=== PATIENT | male | born 1965 | race Caucasian/White ===

== ENCOUNTER 2016-09-14 07:58 | Emergency (ER) | payer OTHER ==
[~2016-09-14] VITALS: Ht 182.9 cm; Wt 85.3 kg
[~2016-09-14 07:58] MED LIST: B COMPLETE1 EACH PO; CADUET 5/201 TABLET; CAMPRAL333 MG PO; CITALOPRAM HBR20 MG PO; FIORICET 50-301 EACH PO; KEFLEX500 MG PO; MULTI VITAMIN1 EACH PO; VICODIN 5-3001 EACH PO; WELLBUTRIN XL150 MG
[2016-09-14 08:30] VITALS: BP 120/86
[2016-09-14] MEDS ORDERED: ACYCLOVIR800 MG PO (08:36)
[2016-09-14] MEDS ORDERED: PERCOCET 5/31 TABLET PO (08:36)
== END 2016-09-14 09:00 | disposition home or self-care (01) ==
LOC: EME 07:58
DX: B02.22 Postherpetic trigeminal neuralgia (principal); R19.7 Diarrhea, unspecified; F17.200 Nicotine dependence, unspecified, uncomplicated
CPT/HCPCS: 99281; 99283

== ENCOUNTER 2017-08-26 14:55 | Emergency (ER) | payer OTHER ==
[~2017-08-26] VITALS: Ht 182.9 cm; Wt 90.9 kg
[~2017-08-26 14:55] MED LIST changes: +ACYCLOVIR800 MG PO; +PERCOCET 5/31 TABLET PO
[2017-08-26 15:03] VITALS: BP 142/99
== END 2017-08-26 15:35 | disposition left against medical advice (07) ==
LOC: EME 14:55
DX: S00.81XA Abrasion of other part of head, initial encounter (principal); S20.212A Contusion of left front wall of thorax, initial encounter; W19.XXXA Unspecified fall, initial encounter; I10 Essential (primary) hypertension; E78.5 Hyperlipidemia, unspecified; F32.9 Major depressive disorder, single episode, unspecified; F17.200 Nicotine dependence, unspecified, uncomplicated; Z87.19 Personal history of other diseases of the digestive system
CPT/HCPCS: 99281; 99283